=== PATIENT | female | born 1975 | race African-American/Black ===

== ENCOUNTER 2018-07-04 16:12 | Inpatient (IN) ==
--- NOTE | 2018-07-04 17:17 | PROVIDER DOCUMENTATION ---
This chart was entered by Mariaa Scanlon Scribe, acting as scribe for Teresita Mcdonald MD. HPI-Rash/Wound/ReCheck - General Chief Complaint: Wound Recheck Stated Complaint: HOLD IN STOMACH FROM SURGERY Time Seen by Provider: 07/04/18 16:39 Source: patient, family Allergies/Adverse Reactions: Allergies Allergy/AdvReac Type Severity Reaction Status Date / Time No Known Allergies Allergy Verified 07/04/18 15:35 Home Medications: Home Medication List Medication Instructions Recorded Confirmed Last Taken Type Metoprolol [Lopressor] 50 mg PO DAILY 04/14/13 11/10/16 11/09/16 History Saxagliptin [Onglyza] 12/13/16 12/13/16 Unknown History Amoxicillin/Potassium Clav 1 each PO BID #14 tablet 12/04/17 Unknown Rx [Augmentin 875-125 Tablet] Clindamycin [Cleocin] 150 mg PO Q6HR #30 cap 07/03/18 Unknown Rx - History of Present Illness-Dermatology Nature of Presenting Problem: 42 yobf presents t the ed with c/o open drainage of wound in abdomen post sx. pt sts dr chiu was at bedside and pulled packing from wound. pt has large open wound with tunneling seen in left lower abdomen. dr chiu called gen surg . pt had hysterectomy on 06/18/18 and has had trouble with wound healing. pt is a diabetic and morbidly obese Location: reports: other (lower abdomen with wound) Quality: reports: painful Severity: reports: severe Onset/Duration: reports: other (06/18/18) Timing: reports: getting worse Context/Associated Symptoms: reports: tender area (open wound) Identifiable cause?: Yes (hysterectomy wound not healing well) Locality of Occurance: Other ([facility]) Similar Symptoms Previously?: Yes Recently seen or treated by another doctor?: Yes (dr chiu) Review of Systems - Adult - REVIEW OF SYSTEMS - ADULT Constitutional: denies: chills, fever Eyes: denies: blurred vision, double vision Ears, Nose, Mouth & Throat: reports: no symptoms reported Cardiovascular: denies: chest pain, palpitations Respiratory: denies: cough, shortness of breath, wheezing Gastrointestinal: reports: see HPI, abdominal pain. denies: diarrhea, nausea, vomiting Genitourinary: reports: no symptoms reported Musculoskeletal: denies: back pain, neck pain Integumentary: reports: see HPI, skin sores/ulcer Neurological: reports: no symptoms reported Psychiatric: reports: no symptoms reported Endocrine: reports: no symptoms reported Hematologic/Lymphatic: reports: no symptoms reported Allergic/Immunologic: reports: no symptoms reported All Other Systems: Reviewed and Negative Past History - Adult - PAST MEDICAL HISTORY-ADULT Review of Records: reports: Old Records Reviewed, Nursing Assessment Review, Medications Reviewed, Social history reviewed & non-contributory. Major Childhood Illnesses: reports: denies history Cardiovascular: reports: HTN Respiratory: reports: denies history Gastrointestinal: reports: denies history Obstetrical/Gynecological: reports: denies history Genitourinary: reports: denies history Musculoskeletal: reports: denies history Neurological: reports: denies history Psychiatric: reports: denies history Endocrine/Immune: reports: Diabetes Other Conditions: reports: denies history - PRIOR SURGERIES/PROCEDURES Surgical/Procedure History: reports: hysterectomy, BTL - IMMUNIZATION STATUS Childhood Immunizations: See Nurse Assessment Flu Vaccine: See Nurse Assessment - FAMILY HISTORY Family History: reviewed, not pertinent - SOCIAL HISTORY Smoking: denies Substance Use: denies Living Situation: family Physical Exam-General - PHYSICAL EXAM-ADULT Initial Vital Signs Reviewed: Yes - CONSTITUTIONAL General Appearance: alert, obese - EYES Eyes: PERRL/EOMI, pink conjunctivae - HEAD, EARS, NOSE, MOUTH & THROAT HENMT: moist mucous membranes, normal ENT inspection - NECK Neck: non-tender, full range of motion, supple, normal inspection - RESPIRATORY Respiratory: chest non-tender, lungs clear, normal breath sounds - CARDIOVASCULAR Cardiovascular: normal peripheral pulses, regular rate, rhythm, no edema - GASTROINTESTINAL (ABDOMEN) Abdominal Exam: soft, tenderness, other (open wound in left suprapubic region and healing scar from hysterectomy inperiumbilcal area) - LYMPHATIC Lymphatic: no adenopathy - MUSCULOSKELETAL Back Exam: normal inspection, no CVA tenderness, no vertebral tenderness Extremity: normal range of motion, non-tender, normal gait, normal inspection, no pedal edema, no calf tenderness, normal capillary refill, pelvis stable - SKIN Integumentary: normal color, normal turgor, warm/dry, other (large unhealing wound, necrotic, some draining left of midline, 5inc below the umbilicus.) - NEUROLOGIC Neurologic: grossly normal, no motor/sensory deficits - PSYCHIATRIC Psych/Mental Status: normal mood/affect, normal thought content, normal thought process, oriented x 3 Progress - PLAN OF CARE/RESULTS Progress/Plan/Lab Results: Orders Category Date Time Status ABSCESS CULTURE INC GRAM STAIN [RM] Stat Lab 07/04/18 17:01 Uncollected CBC WITH ELECTRONIC DIFF [HEME] Stat Lab 07/04/18 17:02 Uncollected COMPREHENSIVE METABOLIC PANEL [CHEM] Stat Lab 07/04/18 17:02 Uncollected PROTIME WITH INR [COAG] Stat Lab 07/04/18 17:02 Uncollected PTT [COAG] Stat Lab 07/04/18 17:02 Uncollected - CONSULTS/PCP/HOSPITALIST Notification #1 *Consult/PCP/Hospitalist*: dr chiu Time Discussed: 17:00 (is waiting to hear from dr gunderson about poc) Reason/Comments: phone consult Departure - Departure Date of Disposition Decision: 07/04/18 Time of Disposition Decision: 17:14 DIAGNOSIS: Dehiscence of closure of skin Disposition: ADMITTED INPATIENT 09 Certified Medical Emergency: Emergent Condition: Stable Referrals and Follow-Ups: Sher Dela Cruz MD [Primary Care Provider] - - Critical Care Note This patient required my direct & personal management of CC.: No Attestation - Physician/ PEDRO LUIS Attestation Patient care was provided by Advanced Practice Provider:: No The physician spent face to face time with patient:: Yes Advanced Practice Provider documentation review:: Supervising physician onsite and consulted in the evaluation and care of this patient. The physician did have a face to face encounter with the patient. This chart was documented by the indicated scribe, (Mariaa Scanlon Scribe) and accurately reflects the services I performed and decisions made by me, Teresita Mcdonald MD, as attested by the provider's signature.
[2018-07-04] MEDS ORDERED: LR 1,000 ML IV ONE (17:24)
[2018-07-04] MEDS ORDERED: CLINDAMYCIN 900 MG/D5W 900 MG/50 ML IVPB IV SCH (17:30)
[2018-07-04] MEDS ORDERED: KEFZOL 2 GM/D5W 2 GM/50 ML IVPB IV ONE (18:00)
[2018-07-04 18:59] LABS: BASO# 0.01 X1000 (0.0-0.2); BASO% 0.1 % (0.0-0.8); EOS% 2.4 % (0.0-10.0); HEMATOCRIT 30.1 % (37.0-47.0); HEMOGLOBIN 8.7 g/dL (12.0-16.0); LYMPH# 2.13 X1000 (1.2-3.4); LYMPH% 25.9 % (20.5-51.1); MCH 21.4 PG (27-31); MCHC 28.9 g/dL (33-37); MONO# 0.93 X1000 (0.11-0.59); MONO% 11.3 % (1.7-9.3); MPV 8.8 FL (7.4-10.4); NEUT# 4.96 X1000 (1.4-6.5); NEUT% 60.3 % (42.2-75.2); PLT 636 X1000 (130-400); RBC 4.07 XMIL (4.2-5.4); RDW 23.9 % (11.5-14.5); WBC 8.23 X1000 (4.8-10.8)
[2018-07-04 19:04] LABS: INR 1.02; PROTIME 14.2 Seconds (11.0-16.0)
[2018-07-04 19:05] LABS: PTT 28.8 Seconds (22.3-41.8)
[2018-07-04 19:31] LABS: AGAP 9; ALB/GLOB RATIO 0.7; ALBUMIN 3.1 g/dL (3.5-5.0); ALKALINE PHOSPHATASE 70 U/L (32-104); BUN 10 mg/dL (8-22); CHLORIDE 103 mmol/L (98-107); COSMO 281; ESTIMATED GFR > 60; GLUCOSE 141 mg/dL (70-104); GOT 13 U/L (10-30); GPT 12 U/L (10-36); POTASSIUM 4.2 mmol/L (3.5-5.1); SODIUM 140 mmol/L (136-145); TCO2 28 mmol/L (25-35); TOTAL BILIRUBIN 0.26 mg/dL (0.20-1.00); TOTAL PROTEIN 7.4 g/dL (6.3-8.3)
[2018-07-04] MEDS: COLACE PO SCH (21:28)
[2018-07-04] MEDS: NORCO-10 PO PRN (21:28)
[2018-07-04] MEDS: PERIDEX MT SCH (21:29)
[2018-07-04] MEDS: GLUCOPHAGE PO SCH (23:21)
[2018-07-04] MEDS: CLINDAMYCIN 900 MG/D5W 900 MG/50 ML IVPB IV SCH (23:23)
--- NOTE | 2018-07-05 00:35 | HISTORY AND PHYSICAL ---
HISTORY: The patient is a 42-year-old female who had abdominal hysterectomy performed by Dr. Petr Crandall on June 18. The patient presented to the office today for Dr. Crandall to evaluate with a superficial wound dehiscence. He did a cursory exam on her and then had the nurses pack her incision site. He did some wound debridement at that time. However, he told the patient that she would need to do dressing changes several times per day. At that time, he then left and the office was closing and the patient did not feel that she would be able to do these dressing changes at home and did not have anyone to care for her to assist with the dressing changes so nurses at this office called me for evaluation. The patient had left at this time and so they showed me a picture of the open incision. I did not feel comfortable making an assessment based on this and so I called both the patient and the physician in question and I decided to bring the patient to the emergency room for evaluation. Upon evaluation in the office she has a very large dehiscence with necrotic tissue and purulent material consistent with an infection and decision has been made to proceed with IV antibiotic therapy. I requested assistance from General Surgery and Dr. Ron Bustillos came and agrees with my assessment that she should be admitted for IV antibiotic therapy so she is admitted at this time for IV antibiotic therapy from her wound dehiscence and probable infection. PAST MEDICAL HISTORY: Positive for hypertension, diabetes. SURGICAL HISTORY: Positive for bilateral tubal ligation and recent abdominal hysterectomy. ALLERGIES: None. CURRENT MEDICATIONS: Several medications for diabetes, several medications for hypertension, I will need to identify these medicines. SOCIAL HISTORY: Negative for tobacco, ETOH or drugs. FAMILY HISTORY: Noncontributory. PHYSICAL EXAM: Morbidly obese female in no acute distress. She is very tearful at this time. Her initial evaluation shows a temperature of 97.8 degrees. Abdomen shows a large superficial dehiscence that is approximately 10 to 12 cm in size with necrotic tissue, especially on the left- hand side. Marked mucopurulent material is noted. ASSESSMENT AND PLAN: Patient admitted at this time for intravenous antibiotic therapy and twice a day Betadine dressing changes. I have discussed this with the patient and her significant other who is with her at this time. cc: MD LINO Mills
[2018-07-05] MEDS: NOVOLOG MIX 70/30 SUBQ SCH ×3 (00:58→16:44)
[2018-07-05] MEDS: NORCO-10 PO PRN ×4 (01:19→16:43)
[2018-07-05] MEDS: KEFZOL 2 GM/D5W 2 GM/50 ML IVPB IV SCH ×3 (05:02→20:30)
[2018-07-05] MEDS: CLINDAMYCIN 900 MG/D5W 900 MG/50 ML IVPB IV SCH ×3 (06:36→21:09)
[2018-07-05] MEDS ORDERED: INSULIN PEN NEEDLES ONE (06:56)
[2018-07-05] MEDS: GLUCOPHAGE PO SCH ×2 (07:45→16:44)
--- NOTE | 2018-07-05 08:12 | PROGRESS NOTE ---
DATE: 07/05/2018 SUBJECTIVE: Patient is sitting in the bed and smiling and seems to be feeling quite well. She adequately responds to questions. OBJECTIVE: She is afebrile. Her vital signs are stable. LABS: Review of her lab work notes a slight bump in her creatinine from 0.8 to 1.0. Initial evaluation of the Gram stain on the culture shows some gram-negative rods, the identification of which are pending. She is currently on her home medications and her blood sugar seemed to be well controlled at this point. PLAN: We are going to continue with IV antibiotic therapy through the day today and continue with our dressing changes with Betadine. I have a director of social work consult pending regarding obtaining home health care to perform packing changes twice a day. When I discussed this with the patient, she did report that her was able to do the moist dressing changes superficially, but would not be able to perform the packing changes and that seems to be the sticking point in obtaining assistance from family members. The patient is very upset about how long it is going to take this to heal and I explained it probably would take 4 months at least. We will proceed with psychiatric social worker supervisor consult to obtain care and await results of the wound culture. cc: Jem Castañeda MD
[2018-07-05] MEDS: LOPRESSOR PO SCH (08:43)
[2018-07-05] MEDS: COLACE PO SCH ×2 (08:43→21:09)
[2018-07-05] MEDS: HYZAAR 50/12.5 MG PO SCH (08:44)
[2018-07-05] MEDS: ONGLYZA PO SCH (08:44)
[2018-07-05] MEDS: PROZAC PO SCH (08:44)
[2018-07-05] MEDS: PERIDEX MT SCH ×2 (08:44→21:09)
[2018-07-05] MEDS ORDERED: TRESIBA FLEXTOUCH U-100 SUBQ SCH (09:00)
[2018-07-05] MEDS ORDERED: DEMEROL IV ONE (21:55)
[2018-07-05] MEDS ORDERED: DEMEROL IM ONE (21:55)
[2018-07-05] MEDS ORDERED: PHENERGAN IM ONE (21:55)
[2018-07-05] MEDS: DEMEROL IM ONE (23:00)
[2018-07-06] MEDS: KEFZOL 2 GM/D5W 2 GM/50 ML IVPB IV SCH ×3 (04:15→20:56)
[2018-07-06] MEDS: NORCO-10 PO PRN ×2 (05:19→11:47)
[2018-07-06] MEDS: CLINDAMYCIN 900 MG/D5W 900 MG/50 ML IVPB IV SCH ×3 (05:20→22:41)
--- NOTE | 2018-07-06 07:50 | PROGRESS NOTE ---
DATE: 07/06/2018 TIME: Approximately 7:15 a.m. SUBJECTIVE: The patient is still somewhat somnolent from pain medicine given earlier in the evening. OBJECTIVE: Afebrile, vital signs stable. Dressing is intact, saturated. ASSESSMENT AND PLAN: We will continue with twice a day dressing changes. We are still awaiting her culture results. The Gram stain has completed but it is still incubating so we will plan on discharge in the morning. Hopefully, our culture results will be completed at that time. Her primary surgeon will have returned at that time and we will proceed with further outpatient therapy at that time. cc: Jem Castañeda MD
[2018-07-06] MEDS: NOVOLOG MIX 70/30 SUBQ SCH ×2 (09:06→17:28)
[2018-07-06] MEDS: GLUCOPHAGE PO SCH ×2 (09:06→17:28)
[2018-07-06] MEDS: HYZAAR 50/12.5 MG PO SCH (09:07)
[2018-07-06] MEDS: ONGLYZA PO SCH (09:07)
[2018-07-06] MEDS: COLACE PO SCH ×2 (09:08→20:55)
[2018-07-06] MEDS: LOPRESSOR PO SCH (09:08)
[2018-07-06] MEDS: PERIDEX MT SCH ×2 (09:08→20:56)
[2018-07-06] MEDS: PROZAC PO SCH (09:08)
[2018-07-06] MEDS: DEMEROL IM ONE (21:03)
[2018-07-06] MEDS: PHENERGAN IM ONE (21:03)
[2018-07-07] MEDS: NORCO-10 PO PRN (01:24)
[2018-07-07] MEDS: PHENERGAN IM ONE (02:42)
[2018-07-07] MEDS: DEMEROL IM ONE (02:42)
[2018-07-07] MEDS: KEFZOL 2 GM/D5W 2 GM/50 ML IVPB IV SCH (04:44)
[2018-07-07] MEDS: CLINDAMYCIN 900 MG/D5W 900 MG/50 ML IVPB IV SCH (05:37)
--- NOTE | 2018-07-07 07:14 | DISCHARGE SUMMARY ---
ADMISSION DATE: 07/05/2018 DISCHARGE DATE: 07/07/2018 PRINCIPAL DIAGNOSIS: Superficial wound dehiscence. PROCEDURE: IV antibiotic therapy and dressing changes. HISTORY: The patient is a 42-year-old, female who is morbidly obese with a BMI over 60. The patient recently had surgery performed by Dr. Petr Crandall and has had a superficial wound dehiscence. She was admitted for therapy and IV antibiotic therapy. HOSPITAL COURSE: The patient has undergone the above-stated procedures and has been doing well. Her blood sugars are much better controlled on her current medications that she is now taking. The culture result is showing a gram-negative may. However, the culture identification is preliminary and pending at this time. We are discharging her home with oral antibiotic therapy that she has already had filled at her home prior to admission. She will be following up with her surgeon today by calling his office and making arrangements for dressing change today and then after he has visualized and examined the extent of the defect, will make a care plan after that. cc: Jem Castañeda MD
[2018-07-07 07:36] VITALS: BP 142/71
[2018-07-07] MEDS: HYZAAR 50/12.5 MG PO SCH (08:10)
[2018-07-07] MEDS: LOPRESSOR PO SCH (08:10)
[2018-07-07] MEDS: COLACE PO SCH (08:10)
[2018-07-07] MEDS: NOVOLOG MIX 70/30 SUBQ SCH (08:11)
[2018-07-07] MEDS: ONGLYZA PO SCH (08:11)
[2018-07-07] MEDS: GLUCOPHAGE PO SCH (08:11)
[2018-07-07] MEDS: PROZAC PO SCH (08:11)
[2018-07-07] MEDS: PERIDEX MT SCH (08:11)
== END 2018-07-07 09:44 | disposition home health service (06) | DRG 920 ==
LOC: ED 16:12 → 4N 19:42
PROVIDERS: ADMIT Obstetrics & Gynecology; ATTEND Obstetrics & Gynecology
CPT/HCPCS: 80053; 82948; 85025; 85610; 85730; 87070; 87077; 87186; 94761; 94799; 96374; 99285; A9270; J0690; J2175; J2550; J7120; XXXXX